=== PATIENT | female | born 1965 | race Two or more races ===

== ENCOUNTER 2021-10-01 03:33 | Emergency (ER) | payer OTHER ==
[~2021-10-01] VITALS: Ht 149.9 cm; Wt 64.0 kg
[2021-10-01] MEDS ORDERED: NAPR-681 PO ×2 (04:29)
[2021-10-01] MEDS ORDERED: IBUP-2029 PO (04:43)
[2021-10-01 05:04] VITALS: BP 131/89
== END 2021-10-01 04:45 | disposition home or self-care (01) ==
LOC: ER 03:33
DX: M25.512 Pain in left shoulder (principal); I10 Essential (primary) hypertension; Z88.3 Allergy status to other anti-infective agents; Y08.89XA Assault by other specified means, initial encounter; Y93.89 Activity, other specified; Y92.9 Unspecified place or not applicable
CPT/HCPCS: 73030; 99283